=== PATIENT | female | born 1985 | race Caucasian/White ===

== ENCOUNTER → 2017-05-02 | Outpatient (CLI) | payer OTHER ==
[~2017-05-02] MED LIST: METHACHOLINE KIT (J7674) INH
== END ==
LOC: M CARPUL 09:25
DX: R06.00 Dyspnea, unspecified (principal)
CPT/HCPCS: J7674

== ENCOUNTER 2017-08-13 15:21 | Outpatient (RCR) | payer OTHER | END 2017-08-24 | LOC: M PT 15:21 | DX: Z51.89 Encounter for other specified aftercare (principal); M54.2 Cervicalgia ==

== ENCOUNTER 2017-08-27 15:15 | Outpatient (RCR) | payer OTHER | END 2017-09-24 | LOC: M PT 15:15 | DX: Z51.89 Encounter for other specified aftercare (principal); M54.2 Cervicalgia ==

== ENCOUNTER → 2017-10-17 | Day surgery (SDC) | payer OTHER ==
[~2017-10-17] MED LIST changes: +LIDOCAINE 2% INJ 100 MG/5 ML SDV (FOR ANES.) As Ordered; -METHACHOLINE KIT (J7674) INH; +PROPOFOL 200 MG/20 ML VIAL As Ordered
[2017-10-17] MEDS: NS 1,000 ML IV (09:00)
== END | disposition home or self-care (01) ==
LOC: M OPP 08:47
DX: R07.89 Other chest pain (principal); K31.89 Other diseases of stomach and duodenum; N39.3 Stress incontinence (female) (male); E66.9 Obesity, unspecified; Z87.891 Personal history of nicotine dependence; Z88.8 Allergy status to other drugs, medicaments and biological substances; Z88.5 Allergy status to narcotic agent; Z79.899 Other long term (current) drug therapy
CPT/HCPCS: 43239

== ENCOUNTER → 2022-05-09 | Outpatient (CLI) | payer OTHER ==
[~2022-05-09] MED LIST changes: +FLUTISP; -LIDOCAINE 2% INJ 100 MG/5 ML SDV (FOR ANES.) As Ordered; +MIRE1IUD IU; +MONT-5 PO; -PROPOFOL 200 MG/20 ML VIAL As Ordered; +ZYRT10CA5 PO
== END ==
LOC: M SLEEP HO 13:50
PROVIDERS: ATTEND Internal Medicine Cardiovascular Disease
DX: G47.33 Obstructive sleep apnea (adult) (pediatric) (principal)

== ENCOUNTER → 2024-03-26 | Outpatient (CLI) | payer OTHER | LOC: M SLEEP 20:00 | PROVIDERS: ATTEND Physician Assistant | DX: G47.33 Obstructive sleep apnea (adult) (pediatric) (principal); R06.83 Snoring ==